=== PATIENT | female | born 1955 | race Caucasian/White ===

== ENCOUNTER 2024-11-30 18:50 | Emergency (ER) | payer OTHER, BC ==
[2024-11-30] MEDS ORDERED: ACETAMINOPHEN INJECTION 100 ML ONE (19:48)
[2024-11-30] MEDS: ACETAMINOPHEN 1000 MG/100 ML BAG IVPB ONE (19:52)
[2024-11-30 19:55] LABS: ABSOLUTE IMMATURE GRANULOCYTES 0.01 x10^3/uL (0.0-0.031); BASOPHILS # 0.01 x10^3/uL (0.01-0.08); EOSINOPHIL % 0.2 % (0.7-5.8); EOSINOPHILS # 0.01 x10^3/uL (0.04-0.36); MCHC 31.3 g/dl (32.2-35.5); MEAN CELL VOLUME 95.7 fl (79.4-94.8); MEAN PLT VOLUME 10.3 fl (9.4-12.3); MONOCYTE # 0.40 x10^3/uL (0.24-0.86); MONOCYTE % 6.9 % (4.7-12.5); RDW 13.1 % (12.4-16.4)
[2024-11-30 20:21] LABS: CO2 28.0 mmol/L (21-32); GLUCOSE,RANDOM 91.0 mg/dL (74-106)
[2024-11-30 20:24] LABS: CREATININE 0.8 mg/dL (0.55-1.3)
[2024-11-30 20:25] LABS: SGOT/AST 21.0 U/L (15-37); SGPT/ALT 26.0 U/L (13-61)
[2024-11-30 20:26] LABS: TOT PROT 6.4 g/dl (6.4-8.2)
[2024-11-30 20:27] LABS: ALK PHOS 66.0 U/L (45-117)
[2024-11-30 21:44] LABS: EPI CELLS 2 /uL (0-25.1); HYALINE CASTS 0 /uL (0-3.1); URINE APPEARANCE Error; URINE BACTERIA 176 /uL (0-1359); URINE BILIRUBIN NEGATIVE (NEGATIVE); URINE COLOR YELLOW; URINE GLUCOSE (UA) NEGATIVE (NEGATIVE); URINE KETONE NEGATIVE (NEGATIVE); URINE LEUK ESTERASE 1+ (NEGATIVE); URINE NITRITE NEGATIVE (NEGATIVE); URINE PROTEIN NEGATIVE (NEGATIVE); URINE RBC 15 /uL (0-23.9); URINE UROBILINOGEN 0.2 mg/dL (0.2-1.0); URINE WBC 220 /uL (0-25.8)
[2024-11-30] MEDS ORDERED: CEFTRIAXONE 1 GM/50 ML BAG ONE (23:03)
[2024-11-30] MEDS: CEFTRIAXONE 1,000 MG in DEXTROSE 5%-WATER - 50 ML IVPB ONE (23:21)
[2024-12-01 01:23] VITALS: TEMP 98.3
[2024-12-01 03:19] VITALS: BP 128/63; PULSE 76; RESP 16
== END 2024-12-01 03:21 | disposition home or self-care (01) ==
LOC: JER 18:50
DX: N13.2 Hydronephrosis with renal and ureteral calculous obstruction (principal)
CPT/HCPCS: 36415; 74176-TC; 80053; 81003; 85025; 87086; 96365; 99285-25